=== PATIENT | male | born 1960 | race Two or more races ===

== ENCOUNTER → 2023-06-19 | Outpatient (CLI) | payer OTHER ==
--- NOTE | 2023-06-19 14:52 | P.PAINPG ---
PQRS Measure Charge Sheet Comment: HISTORY OF PRESENT ILLNESS: 62 yr old male as a referral from the [facility] presents today w severe and chronic neck pain secondary to DDD, spondylosis and facet arthropathy without myelopathy for evaluation. Pt states pain level is provoked at 6 /10 in intensity, constant, localized in the mid to lower cervical spine, stabbing in character w shooting pain towards the mid spine. Pain is provoked by standing, over activity. Pain is alleviated by PT in 2011 which provoked pain, physician guided home stretching daily since 2011, medications (Tramadol), topical, repositioning and rest. Oswestry axial pain score at 27. PMH: OA, HTN, Hyperlipidemia, Paroxysmal aFib, Congenital Heart Defect PSH: T8-S1 Fusion w Hardware (2010 ), Cardiac Ablation x2 (2021), L Knee Arthroscopy (1994), Sinus Surgery (1999) SH: Negative x3. History. FH: Fa- CAD. Mo - CAD. All: See list Meds: See list REVIEW OF ORGAN SYSTEMS: CONSTITUTIONAL: No fevers or chills. No recent weight loss. NEUROLOGICAL: + numbness and tingling along the distal extremities. No seizure disorders or headaches. MUSCULOSKELETAL: + pain PSYCHIATRIC: Denies current depression or suicidal thoughts. Physical Examinations : Constitutional : Cooperative , not in acute distress . Neurologic : Cranial nerve II to XII intact. No focal neurological deficits. Psychiatric : alert & oriented x 3. Matching mood & appropriate affect. Judgment & insight intact. Musculoskeletal : Cervical Spine Motor strength in the deltoid and biceps: Normal right side. Normal Left side Motor strength biceps and the wrist extensors: Normal right side . Normal left side Motor strength in the triceps muscle: Normal right side. Normal left side Deep tendon reflexes: Normal at the biceps. Normal at Brachioradialis. Normal at triceps Vertebral body tenderness to deep palpation over C7 Cervical facet loading test: positive bilaterally Spurling test: positive bilaterally over C7-T1 Neck distraction test: positive bilaterally Andree sign: positive bilaterally Lumbar spine Motor strength lower extremities ,thigh and legs 5/5 Right side , 5/5 Left side Deep tendon reflexes : Normal Knee Jerk. Normal Ankle Jerk Vertebral body tenderness over Arroyo Test positive Lumbar facet Loading Test: positive Right / positive Left Range of motion of the lumbar spine Flexion 30 degrees, extension 10 degrees Straight Leg Raise test: Left/ Right positive at degree Chelsea test: positive right / positive left. Severe tenderness over the Sacroiliac joint on the Right / Left sides Gaenslen test: positive bilaterally Seated flexion test: positive bilaterally. Sacral spine : Severe tenderness over the Sacroiliac joint: right side / left side Range of motion: Flexion of the lumbar spine <60 degrees Range of motion: Extension of the lumbar spine <20 degrees Gaenslen's Test positive Leo's Test positive Chelsea test: positive right side / left side Thigh Thrust Test Sacral Thrust Test Imaging: Images on CD. No software to open available. Requested pt to obtain reports. Assessment/ Plan : Cervical DDD Recommendation of SUNDEEP C7-T1. May need a series of injections for optimal pain relief. Risks, benefits of procedure discussed and patient verbalized understanding. Admits to aspirin or anti- coagulant use or medical history of diabetes. Protocol for discontinuation/ continuation of medications hussein procedure discussed. Minimal anesthesia provided, if clinically indicated, consisting of Versed and Fentanyl. All questions answered. I have spent greater than 30 minutes on patient care today. Dr Vizcarra was available by phone for the evaluation of this patient. The time was used to review the medical records including relevant urine studies and Prescription history (MAPs), review of the available imaging, evaluation and examination of the patient, coordination of care with the medical staff and if applicable referring physicians, as well as creation of the medical record Controlled Substance Measures - Controlled Substance Measures Is patient prescribed a controlled substance at discharge?: No
[2023-06-19 14:54] VITALS: BP 148/89; PULSE 80; RESP 15; TEMP 98.1
== END ==
LOC: PNWHC3 13:34
PROVIDERS: ATTEND Specialist
DX: M50.30 Other cervical disc degeneration, unspecified cervical region (principal); M19.90 Unspecified osteoarthritis, unspecified site; I10 Essential (primary) hypertension; E78.5 Hyperlipidemia, unspecified; I48.0 Paroxysmal atrial fibrillation; Z88.5 Allergy status to narcotic agent
CPT/HCPCS: 99202

== ENCOUNTER → 2023-06-26 | Outpatient (CLI) | payer OTHER ==
--- NOTE | 2023-06-26 09:04 | XR ---
EXAMINATION TYPE: XR lumbar spine 2 or 3V DATE OF EXAM: 06/26/2023 CLINICAL HISTORY: M51.36, chronic pain TECHNIQUE: Three views of the lumbar spine are submitted. COMPARISON: None. FINDINGS: There are 5 lumbar type vertebral bodies identified. Post surgical changes with bilateral pedicular screws and rods involving the entire lumbar spine with extension into the visualized thoracic spine. Hardware appears intact. Additional fixation hardware involving the L5-S1 vertebral bodies with a josé antonio tical screw. Disc fusion cages identified at L3-L4 and L4-L5. No spondylolisthesis. Multilevel degene rative disc disease with disc space narrowing and endplate sclerosis. Dextrocurvature of the lumbar s pine. No acute fracture. Vertebral body heights are maintained. The overlying soft tissue appears unr emarkable. IMPRESSION: 1. No acute fracture or dislocation is seen in the lumbar spine. 2. Extensive postsurgical changes of the visualized thoracolumbar spine. Hardware appears intact wit h appropriate alignment. 3. Mild multilevel degenerative disc disease. 4. Dextrocurvature of the thoracolumbar spine.
[2023-06-26 09:42] VITALS: BP 140/89; PULSE 77; RESP 16; TEMP 98.1
--- NOTE | 2023-06-26 14:30 | P.PAINPG ---
PQRS Measure Charge Sheet Comment: HISTORY OF PRESENT ILLNESS: 62 yr old male presents today w severe and LBP x 1 yr secondary to post laminectomy syndrome for evaluation. Pt states pain level is provoked at 8 /10 in intensity, constant, localized in the lumbar spine, stabbing in character w shooting pain towards the BL pelvis and feet. Pain is provoked by standing, over activity. Pain is alleviated by chiropractic treatments semi weekly 2016- 2021, medications, heat without relief, ice with little relief, topical, repositioning and rest. Oswestry axial pain score at 26. Interventional procedures include DENIES Medications include Tramadol REVIEW OF ORGAN SYSTEMS: CONSTITUTIONAL: No fevers or chills. No recent weight loss. NEUROLOGICAL: + numbness and tingling along the distal extremities. No seizure disorders or headaches. MUSCULOSKELETAL: + pain PSYCHIATRIC: Denies current depression or suicidal thoughts. Physical Examinations : Constitutional : Cooperative , not in acute distress . Neurologic : Cranial nerve II to XII intact. No focal neurological deficits. Psychiatric : alert & oriented x 3. Matching mood & appropriate affect. Judgment & insight intact. Musculoskeletal : Cervical Spine Motor strength in the deltoid and biceps: Normal right side. Normal Left side Motor strength biceps and the wrist extensors: Normal right side . Normal left side Motor strength in the triceps muscle: Normal right side. Normal left side Deep tendon reflexes: Normal at the biceps. Normal at Brachioradialis. Normal at triceps Vertebral body tenderness to deep palpation Cervical facet loading test: positive bilaterally Spurling test: positive Neck distraction test: positive bilaterally Andree sign: positive bilaterally Lumbar spine Motor strength lower extremities ,thigh and legs 5/5 Right side , 5/5 Left side Deep tendon reflexes : Normal Knee Jerk. Normal Ankle Jerk Vertebral body tenderness over Arroyo Test positive Lumbar facet Loading Test: positive Right / positive Left Range of motion of the lumbar spine Flexion 30 degrees, extension 10 degrees Straight Leg Raise test: Left/ Right positive at degree Chelsea test: positive right / positive left. Severe tenderness over the Sacroiliac joint on the Right / Left sides Gaenslen test: positive bilaterally Seated flexion test: positive bilaterally. Sacral spine : Severe tenderness over the Sacroiliac joint: right side / left side Range of motion: Flexion of the lumbar spine <60 degrees Range of motion: Extension of the lumbar spine <20 degrees Gaenslen's Test positive BL Chelsea test: positive right side / left side Thigh Thrust Test BL Sacral Thrust Test positive Imaging: MRI without contrast of the lumbar spine from 2009 Assessment/ Plan : Lumbar DDD s/p post laminectomy syndrome Recommendation of x ray lumbar spine re: M51.36. May need additional testing if indicated. All questions answered. I have spent greater than 30 minutes on patient care today. Dr Vizcarra was available by phone for the evaluation of this patient. The time was used to review the medical records including relevant urine studies and Prescription history (MAPs), review of the available imaging, evaluation and examination of the patient, coordination of care with the medical staff and if applicable referring physicians, as well as creation of the medical record PQRS Narrative: Hx Alcohol Use (MH) No Home Medications: Ambulatory Orders Apixaban [Eliquis] 06/19/23 Dofetilide [Tikosyn] 06/19/23 Metoprolol Succinate [Kapspargo Sprinkle] 06/19/23 traMADol HCL 06/19/23 Controlled Substance Measures - Controlled Substance Measures Is patient prescribed a controlled substance at discharge?: No
== END ==
LOC: PNWHC3 07:42
PROVIDERS: ATTEND Specialist
DX: M51.36 Other intervertebral disc degeneration, lumbar region (principal); M96.1 Postlaminectomy syndrome, not elsewhere classified; Z88.5 Allergy status to narcotic agent
CPT/HCPCS: 72100; 99211

== ENCOUNTER → 2023-06-28 | Outpatient (CLI) | payer OTHER ==
--- NOTE | 2023-07-01 10:44 | MR ---
EXAMINATION TYPE: MR lumbar spine wo con DATE OF EXAM: 06/28/2023 COMPARISON: None HISTORY: Low back pain into bilat buttocks TECHNIQUE: Multiplanar, multisequence images of the lumbar spine were acquired without IV contrast. There is ext ensive metallic susceptibility artifact from pedicular screws throughout the thoracolumbar spine. Por tions of the study are nondiagnostic. L1-L2: Nondiagnostic L2-L3: Nondiagnostic L3-L4: Nondiagnostic L4-L5: Intervertebral spacer appears to be in place. Normal alignment. No evidence for recurrent or r esidual disease. No evidence for fracture. L5-S1: Vertical intervertebral screw noted. Pedicular screws also identified. No evidence for degener ative disc disease, disc herniation or central stenosis. IMPRESSION: Markedly limited study as discussed above several levels being nondiagnostic. Postoperative changes n oted. Alignment appears to be near-anatomic as visualized. No recurrent or residual disease at L4-5 o r L5-S1.
== END | disposition home or self-care (01) ==
LOC: RADMRIMAIN 10:11
PROVIDERS: ATTEND Specialist
DX: M51.36 Other intervertebral disc degeneration, lumbar region (principal); Z98.890 Other specified postprocedural states
CPT/HCPCS: 72148

== ENCOUNTER 2023-07-08 07:18 | Day surgery (SDC) | payer OTHER ==
[2023-07-01 13:43] VITALS: BMI 34.0
[~2023-07-08 07:18] MED LIST: LACTATED RINGERS 1,000 ML IV SCH
[2023-07-08 07:44] VITALS: RESP 18; TEMP 97
[2023-07-08] MEDS ORDERED: IOPAMIDOL M200 10 ML VIAL ONE (08:03)
[2023-07-08] MEDS ORDERED: DEXAMETHASONE SOD PHOSPHATE 10 MG/ML 1 ML VIAL ONE (08:03)
--- NOTE | 2023-07-08 08:24 | P.PCN ---
Date of Procedure: 07/08/23 Description of Procedure: Pre- and Post-operative Diagnosis: Cervical spondylosis without myelopathy, and Cervical radiculopathy Procedure: Left side C7-T1 Inter-Laminar Cervical Epidural Steroid Injection under biplanar fluoroscopy Surgeon: Allison Becker Anesthesia: Local: 1% Lidocaine, IV sedation : None Complications: None. Estimated blood loss: None Specimens removed: None Fluoroscopic image: saved to electronic medical records. Indications for Procedure: The patient has been suffering from neck pain and pain radiating to the upper extremity . Inadequate pain control with pharmacologic regimen. An inter-laminar approach cervical epidural steroid injection was scheduled for the patient. Procedure and Findings: The patient was seen and examined in the holding area. The written informed consent was obtained after explaining the risks, benefits, alternatives of the procedure to the patient. The patient was brought to the procedure room and was placed in the prone position on the operating table. A pillow was placed under the upper chest. Standard anesthesia monitoring was done through out the procedure. Timeout was completed. The skin preparation was done with ChloraPrep 1 and draping was done in usual sterile fashion. Sterile technique was observed throughout the procedure. Under fluoroscopic guidance, the C7-T1 inter-laminar space was identified. 3 ml of 1% Lidocaine was injected with a 25 gauge needle to achieve adequate local anesthesia of the skin and subcutaneous tissue. A 20 gauge, 3.5 inch Tuohy type epidural needle was placed and gradually advanced up to the epidural space using loss of resistance technique and fluoroscopic guidance. Lateral, oblique fluoroscopic views confirm the needle position. No paresthesia was noted. A negative aspiration was confirmed and then 1 ml of Isovue-200 was injected. A good dye spread was seen in the epidural space and it was negative for any intrathecal, intraneural or intravascular spread. A total of 5 ml solution containing 20 mg Dexamethasone, and 3 ml preservative-free Normal Saline was injected slowly with intermittent aspiration. The needle was removed intact, area was cleaned and bandage was applied. Disposition : The patient tolerated the procedure very well. The patient was transferred to the recovery room and remained stable until discharged home. The patient was given detailed discharge instructions for bleeding, infection, increased pain at the injection site, and was advised to seek immediate medical attention should significant side effects develop. The patient will be followed up with our Pain Clinic within 4 weeks for follow-up visit.
[2023-07-08 08:51] VITALS: BP 130/84; PULSE 71
--- NOTE | 2023-07-08 09:13 | FL ---
Fluoroscopy History: NECK PAIN Cervical epi injection with Muppari. 13 sec fluoro time and .[id number] DAP. 3 images saved.
== END 2023-07-08 08:57 | disposition home or self-care (01) ==
LOC: ORPAIN 07:18
DX: M47.812 Spondylosis without myelopathy or radiculopathy, cervical region (principal); G89.29 Other chronic pain; I10 Essential (primary) hypertension; I48.91 Unspecified atrial fibrillation; Z86.16 Personal history of COVID-19; I82.409 Acute embolism and thrombosis of unspecified deep veins of unspecified lower extremity; Z98.890 Other specified postprocedural states; Z79.899 Other long term (current) drug therapy; Z88.5 Allergy status to narcotic agent
CPT/HCPCS: 62321; J1100; Q9966

== ENCOUNTER 2023-07-22 06:19 | Day surgery (SDC) | payer OTHER ==
[2023-07-22 06:51] VITALS: TEMP 97.1
[2023-07-22] MEDS ORDERED: ROPIVACAINE 5MG/ML 20ML VIAL ONE (07:33)
[2023-07-22] MEDS ORDERED: DEXAMETHASONE SOD PHOSPHATE 10 MG/ML 1 ML VIAL ONE (07:33)
[2023-07-22] MEDS ORDERED: IOPAMIDOL M200 10 ML VIAL ONE (07:33)
[2023-07-22 07:52] VITALS: RESP 18
--- NOTE | 2023-07-22 08:17 | P.PCN ---
Date of Procedure: 07/22/23 Surgeon: Lara Gruber Pathology: none sent Condition: stable Disposition: PACU Description of Procedure: PREOPERATIVE DIAGNOSIS: 1-Lumbar radiculopathy 2- Lumber Degenerative Disc Diseases. 3-postlaminectomy pain syndrome POSTOPERATIVE DIAGNOSIS: 1-Lumbar radiculopathy. 2-Lumbar Degenerative Disc Diseases 3-postlaminectomy pain syndrome PROCEDURE 1. Lumbar epidural steroid injection under fluoroscopic guidance at the L4-5 level. 2. Lumbar epidurogram. ANESTHESIA: Local with 1% lidocaine; and IV moderate conscious sedation with Versed and fentanyl EBL: Minimal PROCEDURE INDICATION: The patient with low back pain and radiculitis symptoms unresponsive to conservative treatment. Fluoroscopy was used to optimize visualization of the needle placement and to maximize safety. PROCEDURE DESCRIPTION / TECHNIQUE: The patient was seen and identified in the preoperative area. Risks, benefits, complications including but not limited to infections ,bleeding ,allergic reaction to the medications ,nerve damage and not complete pain relief , and alternatives were discussed with the patient. The patient agreed to proceed with the procedure and signed the consent. IV was started, and vital signs were stable. Patient was taken to the OR and time out was completed. The patient was placed in the prone position on procedure table and a pillow was placed under the abdomen to reduce lumbar lordosis. The lumbosacral area was prepped and draped in the usual sterile fashion with ChloraPrep.Patient was closely monitored during the procedure. Conscious sedation was used during the procedure to decrease patients anxiety. Vital signs were monitered during the entire procedure. Using anterior-posterior fluoroscopy, the L4-5 interlaminar space was identified and the skin over this site was marked and then infiltrated with 1% lidocaine subcutaneously. Subsequently, a 20-gauge Tuohy epidural needle was inserted and advanced toward the epidural space using the Loss of resistance to air technique and guided by AP and lateral fluoroscopy. The correct needle position in the epidural space was verified with the injection of 1 mL of the water soluble contrast dye Omnipaque 180 contrast and observing an excellent epidurogram with the epidural spread of the dye, after negative aspiration for blood and CSF and in the absence of paresthesias. Again after negative aspiration, a 7 ml mixture containing 10 mg of Decadron and 5 ml of preservative free Normal Saline, and 1 ml of preservative free Ropivacaine 0.5% solution was injected and a washout of epidurogram was seen. Needle was withdrawn intact, skin was cleansed, and bandages were applied. patient tolerated procedure well and was transferred to PACU in stable condition.A copy of the needle placement picture was saved to the fluoroscopy machine. COMPLICATIONS: None The patient has long scar from his previous back surgeries and I think he might benefit from a caudal epidural steroid injection with lysis of adhesions next time.
[2023-07-22 08:23] VITALS: BP 124/82; PULSE 79
--- NOTE | 2023-07-22 12:55 | FL ---
EXAMINATION TYPE: FL guided pain mgmt statistic DATE OF EXAM: 07/22/2023 FLUOROSCOPY Fluoroscopy time of 3 seconds was used during lumbar epidural steroid injection. 1 image/s document/ s the procedure.
== END 2023-07-22 08:25 | disposition home or self-care (01) ==
LOC: ORPAIN 06:19
PROVIDERS: ATTEND Anesthesiology
DX: M47.817 Spondylosis without myelopathy or radiculopathy, lumbosacral region (principal); M51.16 Intervertebral disc disorders with radiculopathy, lumbar region
CPT/HCPCS: 62323; J1100; Q9966; J2795

== ENCOUNTER 2023-10-07 07:34 | Day surgery (SDC) | payer OTHER ==
[2023-10-07 08:26] VITALS: TEMP 97.3
[2023-10-07] MEDS ORDERED: IOPAMIDOL M200 10 ML VIAL ONE (08:54)
[2023-10-07] MEDS ORDERED: methylPREDNISolone ACETATE 80 MG/ML 1 ML VIAL ONE (08:54)
--- NOTE | 2023-10-07 09:06 | P.PCN ---
Date of Procedure: 10/07/23 Procedure(s) Performed: PREOP DIAGNOSIS: 1- Lumbar postlaminectomy syndrome. POSTOP DIAGNOSIS:1- Lumbar postlaminectomy syndrome. PROCEDURE: 1-Caudal epidural steroid injection with epidurolysis and epidurogram under fluoroscopic guidance. (Fluoroscopy images available in the radiology Department ) 2-caudal epidurogram. ANESTHESIA: Lidocaine 1% 5 mL only: EBL: Minimal. PROCEDURE INDICATION: The patient with post-laminectomy syndrome with low back pain and radiculopathy radiating down in both legs, here for a caudal epidural steroid injection with epidurolysis. PROCEDURE DESCRIPTION: The patient was seen and identified in the preoperative area. Risks, benefits, complications, and alternatives were discussed with the patient. The patient agreed to proceed with the procedure and signed the consent , and vital signs were stable. Patient was taken to the OR and time out was completed. The patient was placed in the prone position on procedure table and a pillow was placed under the abdomen to reduce lumbar lordosis. The lumbosacral area was prepped and draped in the usual sterile fashion. Vital signs were closely monitored during the procedure. lateral view and the anterior-posterior plates of the sacrum were identified with infiltration of the area overlying the sacral hiatus with 1% lidocaine .A 17 gauge RK epidural needle was used to advance through the sacral hiatus into the caudal epidural space. Omnipaque 180 dye. 2cc was injected and the position of the needle was verified to be in the midline. A Racz catheter was introduced into the epidural space and was advanced towards the L5-S1 interspace under direct fluoroscopic guidance. Multiple passes were made with the catheter for lysis of epidural adhesions. Depo-Medrol 80 mg ( preservative-free ) with 3ml of preservative free Lidocaine 1% and 3 ml of preservative free normal saline was injected slowly. Additional spread was seen to L4 under fluoroscopy. The needle and the catheter were withdrawn intact. EPIDUROGRAM: Omnipaque 180 mg dye 2 ml was injected with spread of the dye into the caudal epidural space and with spread cutoff at L5 prior to epidurolysis. Post epidurolysis dye 2 ml was injected and spread was seen to L3-4.There was further spread of the solution together with the dye above the L3 COMPLICATIONS: None. DISPOSITION / PLANS: The patient was placed in a supine position and transferred to the recovery area in a stable condition for observation and was discharged from the recovery room after meeting discharge criteria. Home discharge instructions given to the patient by the staff. The patient was reexamined prior to discharge. The patient will schedule a follow up in the clinic in 2-4 weeks. Patientheld Eliquis for 3 days before the procedure
[2023-10-07 09:23] VITALS: RESP 20
--- NOTE | 2023-10-07 09:43 | FL ---
Intraoperative/procedural fluoroscopic services were provided. Total fluoroscopy time is 10.5 seconds with a total of 4 submitted images to PACS. Please see the operative/procedural note for further det ails. DAP: [id number] mGym2
[2023-10-07 09:51] VITALS: BP 134/84; PULSE 65
== END 2023-10-07 09:28 | disposition home or self-care (01) ==
LOC: ORPAIN 07:34
PROVIDERS: ATTEND Specialist
DX: M96.1 Postlaminectomy syndrome, not elsewhere classified (principal); M54.50 Low back pain, unspecified; Z79.01 Long term (current) use of anticoagulants
CPT/HCPCS: 62323; J1040; Q9966

== ENCOUNTER → 2023-11-06 | Outpatient (CLI) | payer OTHER ==
[2023-11-06 14:43] VITALS: BP 153/102; PULSE 90; RESP 16
--- NOTE | 2023-11-06 15:58 | P.PAINPG ---
PQRS Measure Charge Sheet Comment: HISTORY OF PRESENT ILLNESS: A 62 yr old male presents today w severe and neck and LBP x 1 yr secondary to cervical DDD and post laminectomy syndrome for evaluation s/p SUNDEEP L4-L5 #1. Pt states he experienced 50 % pain relief x 3 wks s/p procedure. Pt states pain level is provoked at 8 /10 in intensity, constant, localized in the lumbar spine, stabbing in character w shooting pain towards the BL pelvis and feet. Pain is provoked by standing, over activity. Pain is alleviated by chiropractic treatments semi weekly [id number], medications, heat without relief, ice with little relief, topical, repositioning and rest. Oswestry axial pain score at 26. Interventional procedures include DENIES Medications include Tramadol REVIEW OF ORGAN SYSTEMS: CONSTITUTIONAL: No fevers or chills. No recent weight loss. NEUROLOGICAL: + numbness and tingling along the distal extremities. No seizure disorders or headaches. MUSCULOSKELETAL: + pain PSYCHIATRIC: Denies current depression or suicidal thoughts. Physical Examinations : Constitutional : Cooperative , not in acute distress . Neurologic : Cranial nerve II to XII intact. No focal neurological deficits. Psychiatric : alert & oriented x 3. Matching mood & appropriate affect. Judgment & insight intact. Musculoskeletal : Cervical Spine Motor strength in the deltoid and bic eps: Normal right side. Normal Left side Motor strength biceps and the wrist extensors: Normal right side . Normal left side Motor strength in the triceps muscle: Normal right side. Normal left side Deep tendon reflexes: Normal at the biceps. Normal at Brachioradialis. Normal at triceps Vertebral body tenderness to deep palpation C7 Cervical facet loading test: positive bilaterally Spurling test: positive over BL C7-T1 Neck distraction test: positive bilaterally Andree sign: positive bilaterally Lumbar spine Motor strength lower extremities ,thigh and legs 5/5 Right side , 5/5 Left side Deep tendon reflexes : Normal Knee Jerk. Normal Ankle Jerk Vertebral body tenderness over Arroyo Test positive Lumbar facet Loading Test: positive Right / positive Left Range of motion of the lumbar spine Flexion 30 degrees, extension 10 degrees Straight Leg Raise test: Left/ Right positive at degree Chelsea test: positive right / positive left. Severe tenderness over the Sacroiliac joint on the Right / Left sides Gaenslen test: positive bilaterally Seated flexion test: positive bilaterally. Sacral spine : Severe tenderness over the Sacroiliac joint: right side / left side Range of motion: Flexion of the lumbar spine <60 degrees Range of motion: Extension of the lumbar spine <20 degrees Gaenslen's Test positive BL Chelsea test: positive right side / left side Thigh Thrust Test BL Sacral Thrust Test positive Imaging: MRI without contrast of the lumbar spine from 2009 Assessment/ Plan : Lumbar DDD s/p post laminectomy syndrome Recommendation of PT x 6 wks w therapeutic massage M50.30, [id number] Will get aquatherapy at the [facility]. Referral to Orthopedic Surgery to explore additional treatment options. All questions answered. I have spent greater than 30 minutes on patient care today. Dr Vizcarra was available by phone for the evaluation of this patient. The time was used to review the medical records including relevant urine studies and Prescription history (MAPs), review of the available imaging, evaluation and examination of the patient, coordination of care with the medical staff and if applicable referring physicians, as well as creation of the medical record PQRS Narrative: Hx Alcohol Use (MH) No Home Medications: Ambulatory Orders Apixaban [Eliquis] 5 mg PO BID 06/19/23 traMADol HCL 100 mg PO BID PRN 06/19/23 Cholecalciferol [Vitamin D3 (25 Mcg = 1000 Iu)] 25 mcg PO DAILY 06/26/23 Dofetilide [Tikosyn] 500 mcg PO Q12HR 09/25/23 Metoprolol Succinate [Metoprolol Succinate ER] 1 tab PO BID 10/07/23 Controlled Substance Measures - Controlled Substance Measures Is patient prescribed a controlled substance at discharge?: No
== END ==
LOC: PNWHC3 13:45
PROVIDERS: ATTEND Specialist
DX: M96.1 Postlaminectomy syndrome, not elsewhere classified (principal); M51.16 Intervertebral disc disorders with radiculopathy, lumbar region; M50.13 Cervical disc disorder with radiculopathy, cervicothoracic region; Z88.5 Allergy status to narcotic agent
CPT/HCPCS: 99211

== ENCOUNTER 2024-01-30 07:42 | Day surgery (SDC) | payer OTHER ==
[2024-01-30] MEDS: diazePAM 5 MG TAB PO STA (08:33)
[2024-01-30 09:11] VITALS: TEMP 98
--- NOTE | 2024-01-30 10:48 | FL ---
EXAMINATION TYPE: FL myelogram thoracic DATE OF EXAM: 01/30/2024 9:51 AM CLINICAL INDICATION:Male, 63 years old with history of M54.10, M54.6; COMPARISON: MR 06/28/2023 ATTENDING: Gordo Snow D.O. FINDINGS: Informed consent was obtained including discussion of the risks and benefits. Timeout was taken per p rotocol. Real-time fluoroscopy was performed to localize the lumbar spine access site. The patient wa s prepped and draped. Under sterile technique with local anesthesia a 22-gauge spinal needle was intr oduced into the arachnoid space with return of clear CSF. A total of 10 cc of Isovue-300 M was inject ed with appropriate opacification of the thecal sac. Total fluoroscopy time was 32 seconds Total fluoroscopic images 0. Radiographs taken: 5 DAP: Not Reported by machine [id number] IMPRESSION: Successful lumbar puncture with injection for CT myelogram. CT pending.
[2024-01-30 11:14] VITALS: PULSE 68
[2024-01-30 14:21] VITALS: BP 106/65; RESP 14
--- NOTE | 2024-01-31 17:51 | CT ---
EXAMINATION TYPE: CT thoracic spine with intrathecal contrast CT DLP: 4267.7 mGycm, Automated exposure control for dose reduction was used. DATE OF EXAM: 01/30/2024 10:47 AM COMPARISON: Same day mammogram 01/30/2024.. CLINICAL INDICATION:Male, 63 years old with history of M54.10, M54.6; [facility], Thoracic myelogram TECHNIQUE: Axial images of the thoracic spine were obtained without contrast. Coronal and sagittal re formats were performed. 3-D reformats of the bones were created on a separate workstation and submitt ed for review. CT DLP: 4267.7 mGycm, Automated exposure control for dose reduction was used. Contrast used:11 mL of Isovue M300 with IV Contrast, intrathecal contrast. Oral contrast used: none FINDINGS: Multilevel fixation changes throughout the spine starting at the level of T8 extending out of the [id number] inferiorly. Hardware limits evaluation at these levels. Hardware appears intact and in appropriate position. Intrathecal contrast extends throughout the spinal cord [id number]. T here is no evidence for significant spinal canal or neural foraminal stenosis visualized. Mild degene ration changes throughout the spine with mild disc space narrowing, osteophyte formation and facet owen int arthropathy. IMPRESSION: Postsurgical changes throughout the spine, hardware appears intact and in appropriate position. Spina l canal and neural foramen are patent.
== END 2024-01-30 13:30 | disposition home or self-care (01) ==
LOC: RADPROMAIN 07:42
PROVIDERS: ATTEND Orthopaedic Surgery
DX: M54.6 Pain in thoracic spine (principal); M54.10 Radiculopathy, site unspecified
CPT/HCPCS: 62303; 72129; Q9967

== ENCOUNTER → 2024-02-06 | Outpatient (CLI) | payer OTHER ==
--- NOTE | 2024-02-11 14:20 | CT ---
EXAMINATION TYPE: CT chest wo con CT DLP: 625.20 mGycm, Automated exposure control for dose reduction was used. DATE OF EXAM: 02/06/2024 8:08 AM COMPARISON: None. . CLINICAL INDICATION:Male, 63 years old with history of R22.1 SWELING MASS LUMP; PH[facility], swollen lymph no marj in upper chest. TECHNIQUE: Multiple axial images were obtained through the chest. Sagittal and coronal reformats were created for review. Contrast used: mL of (None if empty) Oral contrast used: (None if empty) FINDINGS: Examination limited by lack of IV contrast. LUNGS/ PLEURA: The lung parenchyma appears unremarkable. No pleural effusion or pneumothorax. AIRWAY: Central airways are patent. LOWER NECK: Only nonenlarged nodes are seen. Unremarkable thyroid. No significant abnormality. MEDIASTINUM: No pathologically enlarged lymph nodes.. HEART: Heart size upper normal. No significant coronary calcifications.. No appreciable pericardial e ffusion. VASCULATURE: No significant aortic atherosclerotic calcification.. Ascending aorta is 3.5 CM, descen ding is 2.8 CM. Pulmonary trunk measures 2.6 CM. Pulmonary trunk is normal in size. SOFT TISSUES/LYMPH NODES: Mild bilateral gynecomastia like changes. No axillary adenopathy. UPPER ABDOMEN: No significant finding. MUSCULOSKELETAL: No acute osseous abnormality. Mild/moderate degenerative changes. Multilevel pedicle screws and posterior fixation rods; it is pretty recent thoracic CT myelogram for full description o f findings. IMPRESSION: No significant abnormality in the chest.
== END | disposition home or self-care (01) ==
LOC: RADCTMAIN 07:34
PROVIDERS: ATTEND Family Medicine
DX: R22.1 Localized swelling, mass and lump, neck (principal)
CPT/HCPCS: 71250

== ENCOUNTER → 2024-02-06 | Outpatient (CLI) | payer OTHER ==
--- NOTE | 2024-02-06 09:06 | US ---
EXAMINATION TYPE: US thyroid st tissue head/neck DATE OF EXAM: 02/06/2024 COMPARISON: NONE CLINICAL INDICATION: Male, 63 years old with history of R22.1 LOCALIZED SWELLING, MASS AND LUMP, NECK ; Patient has bilateral "lumps" bilaterally Technique: Grayscale imaging of the area of patient's palpable abnormalities. Findings: No organizing fluid collection or mass. No lymphadenopathy. IMPRESSION: No finding to correlate patient's palpable abnormality. Consider CT neck with IV contrast liver remai ns concern.
== END | disposition home or self-care (01) ==
LOC: RADUSWWP 07:37
PROVIDERS: ATTEND Family Medicine
DX: R22.1 Localized swelling, mass and lump, neck (principal)
CPT/HCPCS: 76536

== ENCOUNTER → 2024-02-13 | Outpatient (CLI) | payer OTHER ==
--- NOTE | 2024-02-17 21:57 | MR ---
EXAMINATION TYPE: MR cervical spine wo con DATE OF EXAM: 02/13/2024 COMPARISON: None HISTORY: Neck pain into both arms, Headaches CONTRAST: Performed utilizing mL intravenous gadolinium contrast. TECHNIQUE: Multiplanar multiecho imaging on a 3.0 Maribel magnet is performed through the cervical spin e. FINDINGS: The craniovertebral junction is normal. Vertebral body alignment is normal. C7-T1: No focal disc herniation or significant disc bulge is evident. No spinal canal stenosis or n eural foraminal stenosis is present. C6-7: There is a small central disc herniation with subligamentous disc extension posterior to the C6 level. This has mild anterior thecal sac compression. No cord contact or spinal canal stenosis is pr esent. Neural foramen are patent. C5-6: May be a tiny central protrusion without cord contact or spinal canal stenosis. Neural foramen are patent. C4-5: Broadbase mild disc bulge is present with mild anterior thecal sac compression. This comes in c lose approximation with spinal cord. No spinal canal stenosis or neural foraminal stenosis is present .. C3-4: Broad-based disc bulge with moderate anterior thecal sac contact. No deformity is evident. No A P spinal canal stenosis. Neural foramen are patent. C2-3: Small central protrusion with mild anterior thecal sac compression. No AP spinal canal stenosis present. Neural foramen are patent.. IMPRESSION: 1. Moderate sized central disc bulge at C3-4 with anterior thecal sac contact. Cord contact without d eformity is present. 2. Small central protrusion C2-3 without cord contact or stenosis. 3. Broadbase mild disc bulge C4-5 and close approximation spinal cord without spinal canal stenosis o r cord deformity. 4. Central subligamentous disc herniation C6-7 extending posterior to C6 has mild anterior thecal sac compression. No stenosis or cord deformity.
== END | disposition home or self-care (01) ==
LOC: RADMRIMAIN 18:53
PROVIDERS: ATTEND Orthopaedic Surgery
DX: M50.31 Other cervical disc degeneration, high cervical region (principal); M50.21 Other cervical disc displacement, high cervical region; M50.321 Other cervical disc degeneration at C4-C5 level; M50.223 Other cervical disc displacement at C6-C7 level
CPT/HCPCS: 72141